=== PATIENT | female | born 1990 | race Caucasian/White ===

== ENCOUNTER 2022-09-21 14:11 | Observation (INO) ==
--- NOTE | 2022-09-21 14:21 | Emergency Department Note ---
Impression & Plan Acute cholecystitis, Biliary colic, Abdominal pain, RUQ ED Provider Note NAME: SANDY MOTT AGE: 31 SEX: F : 1990 ARRIVES VIA: Walk-In INFORMANT: Patient, ED PROVIDER(S): Julian Coe MD CHIEF COMPLAINT: Abdominal pain MEDICAL DECISION MAKING: Patient presents due to concern for abdominal pain that began about 45 minutes to an hour prior to arrival. IV was established blood obtained and right upper quadrant ultrasound was also obtained given the patient's epigastric and right upper quadrant discomfort darien cially in light of recent postprandial symptoms. Patient blood shows a normal white count H&H and platelet count. Kidney function is unremarkable. Mild hyponatremia. Bilirubin 1.1 with an AST of 60. Other LFTs and lipase are normal. Urinalysis shows the possibility of infection with the patient complains of upper abdominal pain does have numerous epithelial cells. Likely contaminated specimen. COVID-negative. Patient did have recurrence of abdominal pain symptoms. The patient was ordered IV morphine and IV Pepcid. 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 There is wall thickening. Given this concern and her initial examination with postprandial symptoms I did speak the on-call general surgeon Dr. Lewis who did evaluate the patient. Dr. Lewis requested Zosyn which was ordered IV. Patient was admitted by the surgical service. Patient was was likely going to the OR tomorrow given the patient had recently needed eaten around 1 PM. Prior /Outside records reviewed: None Differential diagnosis: Biliary colic, cholecystitis, appendicitis, ovarian cyst, ovarian torsion, ectopic , TOA, PID, infections, diverticulitis, UTI, obstruction, mesenteric ischemia, aortic pathology, inflammatory bowel disease, renal colic, PUD, pancreatitis, biliary pathology, hernia, volvulus, constipation, as well as other pathologies. Diagnostics, as interpreted by me: ECG: None Cardiac monitoring: An order was placed for continuous cardiac monitoring. The monitor shows a rate of 87 with sinus rhythm. Patient was placed on pulse oximetry Medical decision rules: None Imaging studies: See below HPI: Patient presents due to concern for abdominal pain. Patient states it is in the upper abdomen epigastric and right upper quadrant some ongoing after eating approxi-1 hour prior to arrival. Patient denies any chest pains or shortness of breath. The patient is a nausea but no vomiting. LMP was about 5 weeks ago is on control this is typical for her. No vaginal bleeding or discharge patient denies any blood in urine or stool and no dysuria. No history of kidney stones. Patient has never had any prior abdominal surgery. Patient does not experience count of pain before. The patient did not take anything for prior to arrival. PAST MEDICAL HISTORY: See Below PAST SURGICAL HISTORY: See Below SOCIAL HISTORY: See Below HOME MEDICATIONS: See Below ALLERGIES: See Below VITALS: See Below PHYSICAL EXAMINATION: GENERAL: Alert and comfortable in appearance, nontoxic EYE EXAM: Normal conjunctiva. PERRL, no anisocoria and EOM's grossly intact w/o pain. NECK: Supple, no nuchal rigidity, no adenopathy, non-tender. No signs of meningismus. FROM of the neck with good chin to chest and neck extension. No stridor. LUNGS: Clear to auscultation. Normal chest wall mechanics. HEART: NSR, no MRG. ABDOMEN: Abdomen soft, right upper quadrant pain and epigastric pain without lower abdominal pain, not peritonitic, no masses, no rebound or guarding. BACK: No CVA TTP. SKIN: No rashes and no bruising. UPPER EXTREMITIES: Upper extremities are grossly normal. LOWER EXTREMITIES: Grossly normal, no edema. NEURO EXAM: A&O x3, cranial nerves II-XII grossly intact, normal speech, moves all 4 extremities. Past Med/Surg History Medical History No pertinent past medical history Surgical History No pertinent past surgical history Social History Smoking Status: Never smoker Hx Alcohol Use: Yes Hx Substance Use: No Preferred Language: [place]ese Feels Safe at Home: Yes Allergies Allergies Allergy/AdvReac Type Severity Reaction Status Date / Time No Known Allergies Allergy Verified 09/21/22 16:31 Home Meds Home Medications Medication Instructions Recorded Confirmed etonogestrel 0.12 mg-ethinyl 1 vag ring vaginal DIRECTED 09/21/22 09/21/22 estradiol 0.015 mg/24 hr vaginal ring (EluRyng) levothyroxine 100 mcg tablet 100 mcg PO DAILYBB 09/21/22 09/21/22 (Synthroid) liothyronine 5 mcg tablet 5 mcg PO QAM 09/21/22 09/21/22 sertraline 100 mg tablet 150 mg PO QAM 09/21/22 09/21/22 Results & Data (ED) Vital Signs Vital Signs - 24 hr 09/21/22 14:13 09/21/22 15:03 09/21/22 15:03 Temperature 36.6 C Temperature Source Temporal Artery Scan Pulse Rate 104 H 88 Pulse Rate [Apical] Respiratory Rate 18 Blood Pressure 121/80 Blood Pressure [Right Arm] Blood Pressure Mean 93 Blood Pressure Mean [Right Arm] Blood Pressure Position Sitting Pulse Oximetry 100 98 Oxygen Delivery Method Room Air Room Air Room Air Sepsis Recent Fever Within 48 Hours No Sepsis New/Unexplained Change in Mental Status N/A Sepsis Action Taken by Nursing No Action Required 09/21/22 15:03 09/21/22 15:46 09/21/22 16:01 Temperature Temperature Source Pulse Rate 89 Pulse Rate [Apical] 88 90 Respiratory Rate 19 19 Blood Pressure Blood Pressure [Right Arm] 126/62 127/95 Blood Pressure Mean Blood Pressure Mean [Right Arm] 83 105 Blood Pressure Position Pulse Oximetry 99 99 Oxygen Delivery Method Room Air Room Air Sepsis Recent Fever Within 48 Hours Sepsis New/Unexplained Change in Mental Status Sepsis Action Taken by [facility] Medications Current Medication List: was personally reviewed by me Laboratory Data Attestation: I reviewed the patient's lab results. 09/21/22 14:58 09/21/22 14:58 Lab Results 09/21/22 09/21/22 09/21/22 Range/Units 14:58 14:58 14:58 WBC 9.57 (4.8-10.8) K/ul RBC 5.03 (4.20-5.40) M/uL Hgb 15.0 (12.0-16.0) g/dl Hct 43.0 (37.0-47.0) % MCV 85.5 (80.0-100.0) fL MCH 29.8 (25.0-34.0) pg MCHC 34.9 (32.0-36.0) g/dL RDW Std Deviation 35.6 L (36.4-46.3) fL RDW Coeff of Prisca 11.7 (11.5-14.5) % Plt Count 255 (130-400) K/uL MPV 9.6 (9.4-12.4) fL Immature Gran % (Auto) 0.4 % Neut % (Auto) 74.1 % Lymph % (Auto) 20.5 % Fisher % (Auto) 3.6 % Eos % (Auto) 0.8 % Baso % (Auto) 0.6 % Neut # (Auto) 7.09 H (1.40-6.50) K/uL Lymph # (Auto) 1.96 (1.2-3.4) K/uL Fisher # (Auto) 0.34 (0.11-0.59) K/uL Eos # (Auto) 0.08 (0-0.50) K/uL Baso # (Auto) 0.06 (0-0.2) K/uL Immature Gran # (Auto) 0.04 (0.01-0.20) K/uL Sodium 139 (136-145) mmol/L Potassium 3.2 L (3.5-5.1) mmol/L Chloride 106 (98-107) mmol/L Carbon Dioxide 23 (21-32) mmol/L Anion Gap 10 (3-11) BUN 10 (6-23) mg/dl Creatinine 0.78 (0.6-1.2) mg/dl Est Cr Clr Drug Dosing Not Reportable Est GFR ( Amer) 117.4 ml/min Est GFR (Non-Af Amer) 101.3 ml/min BUN/Creatinine Ratio 12.8 (10-20) Glucose 107 H (70-99(Fasting)) mg/dl Calcium 9.4 (8.6-10.3) mg/dl Total Bilirubin 1.1 H (0.2-1.0) mg/dl AST 60 H (13-39) U/L ALT 27 (7-52) U/L Alkaline Phosphatase 50 (34-104) U/L Total Protein 7.5 (6.0-8.3) gm/dl Albumin 4.2 (3.4-5.0) gm/dl Globulin 3.3 (2.5-4.0) gm/dl Albumin/Globulin Ratio 1.3 (0.9-2) Lipase 17 (11-82) U/L Urine Color Yellow Urine Appearance Cloudy A (Clear) Urine pH 6.5 (4.5-7.5) Ur Specific [place] 1.021 (1.000-1.030) Urine Protein Negative (Negative) Urine Glucose (UA) Negative (Negative) Urine Ketones Negative (Negative) Urine Blood Negative (Negative) Urine Nitrite Negative (Negative) Urine Bilirubin Negative (Negative) Urine Urobilinogen Negative (Negative) Ur Leukocyte Esterase 2+ H (Negative) Urine WBC (Auto) >30 H (0-5) /hpf Urine RBC (Auto) 0-4 (0-4) /hpf U Hyaline Cast (Auto) 1-5 (0-5) /lpf U Epithel Cells (Auto) >30 H (0-5) /lpf Urine Bacteria (Auto) 2+ H (Negative) SARS-CoV-2, RNA, NAAT (NEGATIVE) 09/21/22 Range/Units 15:00 WBC (4.8-10.8) K/ul RBC (4.20-5.40) M/uL Hgb (12.0-16.0) g/dl Hct (37.0-47.0) % MCV (80.0-100.0) fL MCH (25.0-34.0) pg MCHC (32.0-36.0) g/dL RDW Std Deviation (36.4-46.3) fL RDW Coeff of Prisca (11.5-14.5) % Plt Count (130-400) K/uL MPV (9.4-12.4) fL Immature Gran % (Auto) % Neut % (Auto) % Lymph % (Auto) % Fisher % (Auto) % Eos % (Auto) % Baso % (Auto) % Neut # (Auto) (1.40-6.50) K/uL Lymph # (Auto) (1.2-3.4) K/uL Fisher # (Auto) (0.11-0.59) K/uL Eos # (Auto) (0-0.50) K/uL Baso # (Auto) (0-0.2) K/uL Immature Gran # (Auto) (0.01-0.20) K/uL Sodium (136-145) mmol/L Potassium (3.5-5.1) mmol/L Chloride (98-107) mmol/L Carbon Dioxide (21-32) mmol/L Anion Gap (3-11) BUN (6-23) mg/dl Creatinine (0.6-1.2) mg/dl Est Cr Clr Drug Dosing Est GFR ( Amer) ml/min Est GFR (Non-Af Amer) ml/min BUN/Creatinine Ratio (10-20) Glucose (70-99(Fasting)) mg/dl Calcium (8.6-10.3) mg/dl Total Bilirubin (0.2-1.0) mg/dl AST (13-39) U/L ALT (7-52) U/L Alkaline Phosphatase (34-104) U/L Total Protein (6.0-8.3) gm/dl Albumin (3.4-5.0) gm/dl Globulin (2.5-4.0) gm/dl Albumin/Globulin Ratio (0.9-2) Lipase (11-82) U/L Urine Color Urine Appearance (Clear) Urine pH (4.5-7.5) Ur Specific [place] (1.000-1.030) Urine Protein (Negative) Urine Glucose (UA) (Negative) Urine Ketones (Negative) Urine Blood (Negative) Urine Nitrite (Negative) Urine Bilirubin (Negative) Urine Urobilinogen (Negative) Ur Leukocyte Esterase (Negative) Urine WBC (Auto) (0-5) /hpf Urine RBC (Auto) (0-4) /hpf U Hyaline Cast (Auto) (0-5) /lpf U Epithel Cells (Auto) (0-5) /lpf Urine Bacteria (Auto) (Negative) SARS-CoV-2, RNA, NAAT NEGATIVE (NEGATIVE) Administered Medications Enoxaparin Sodium (Enoxaparin Inj 40 Mg/0.4 Ml Syr) 40 mg SQ Q24H LUAN Stop: 10/21/22 18:15 Last Admin: 09/21/22 20:20 Dose: 40 mg Documented By: MARK Lactated Ringer's (Lr) 1,000 mls @ 100 mls/hr IV .Q10H LUAN Stop: 10/21/22 18:15 Last Infusion: 09/22/22 08:08 Dose: 0 mls/hr Documented By: Admin: 09/21/22 18:27 Dose: 100 mls/hr Documented By: LEAH Piperacillin Sod/Tazobactam (Sod 4.5 gm/ Dextrose) 120 mls @ 30 mls/hr IV Q8H LUAN; Protocol Stop: 10/02/22 00:00 Last Admin: 09/22/22 08:08 Dose: 30 mls/hr Documented By: Infusion: 09/22/22 03:58 Dose: 0 mls/hr Documented By: Admin: 09/21/22 23:57 Dose: 30 mls/hr Documented By: MARK Discontinued Medications Sodium Chloride (Nss) 500 mls @ 999 mls/hr IV .Q31M STA Stop: 09/21/22 14:59 Last Infusion: 09/21/22 15:37 Dose: 0 mls/hr Documented By: Admin: 09/21/22 14:55 Dose: 999 mls/hr Documented By: Famotidine (Pepcid 20mg Iv Push) 20 mg in 5 mls @ 2.5 mls/min IV NOW STA Stop: 09/21/22 15:51 Last Admin: 09/21/22 15:55 Dose: 2.5 mls/min Documented By: Piperacillin Sod/Tazobactam (Sod 4.5 gm/ Dextrose) 120 mls @ 200 mls/hr IV NOW ONE; Protocol Stop: 09/21/22 17:23 Last Infusion: 09/21/22 17:53 Dose: 0 mls/hr Documented By: Admin: 09/21/22 17:14 Dose: 200 mls/hr Documented By: Ketorolac Tromethamine (Ketorolac Tromethamine 15 Mg/Ml Vial) 10 mg IV NOW STA Stop: 09/21/22 14:30 Last Admin: 09/21/22 14:54 Dose: 10 mg Documented By: Morphine Sulfate (Morphine Sulfate 10 Mg/Ml Carp/Vial) 8 mg IV NOW STA Stop: 09/21/22 15:51 Last Admin: 09/21/22 15:56 Dose: 8 mg Documented By: Ondansetron HCl (Ondansetron Inj 2 Mg/Ml 2 Ml Vial) 4 mg IV NOW STA Stop: 09/21/22 14:30 Last Admin: 09/21/22 14:55 Dose: 4 mg Documented By: Imaging Data Radiologist's Impression: Gallbladder Ultrasound 09/21/22 14:29 US gallbladder CLINICAL HISTORY: epiastric RUQ pain after eating TECHNIQUE: Multiple real-time sonographic images of the right upper quadrant were obtained. Comparison: None available at the time of this dictation. FINDINGS: The liver is diffusely homogenous with normal contour and echogenicity. No focal mass lesions are seen. No intrahepatic ductal dilatation is seen. 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 Patient is tender over the gallbladder but evaluation is limited by pain medication. The common duct measures 0.4 cm in diameter at the level of the hepatic artery. The visualized portions of the pancreas appear normal. The right kidney shows normal echogenicity, cortical thickness and renal contour. The right kidney shows no evidence of hydronephrosis or mass. No ascites or free fluid is seen in Roberto's pouch. IMPRESSION: Overall indeterminate exam with limited evaluation due to pain medication and porcelain gallbladder. Wall thickening and patient tenderness is suggestive of acute cholecystitis. If further evaluation is desired, nuclear medicine HIDA scan can be performed. ACT 112: Negative or not required by law. Electronically signed by: Angel Falcon M.D. 09/21/2022 3:49 PM Discharge Plan Visit Data Chief Complaint: Abdominal Pain Stated Complaint: ABDOMINAL PAIN ED Provider: Julian Coe Discharge Problem: Acute cholecystitis, Biliary colic, Abdominal pain, RUQ Patient Disposition: Admitted As Inpatient Discharge Instructions Interventions: ED Discharge Assessment Last Done: 09/21/22 17:59
[2022-09-21] MEDS ORDERED: ONDANSETRON INJ 2 MG/ML 2 ML VIAL IV STA (14:29)
[2022-09-21] MEDS ORDERED: SODIUM CHLORIDE 0.9% 500 ML IV STA (14:29)
[2022-09-21] MEDS ORDERED: KETOROLAC TROMETHAMINE 15 MG/ML VIAL IV STA (14:29)
[2022-09-21 15:11] LABS: Basophils # (auto) 0.06 K/uL (0-0.2); Basophils % (auto) 0.6 %; Eosinophils # (auto) 0.08 K/uL (0-0.50); Eosinophils % (auto) 0.8 %; Immature Granulocytes # (auto) 0.04 K/uL (0.01-0.20); Immature Granulocytes % (auto) 0.4 %; Lymphocytes # (auto) 1.96 K/uL (1.2-3.4); Lymphocytes % (auto) 20.5 %; Mean Corpuscular Hemoglobin 29.8 pg (25.0-34.0); Mean Corpuscular Hgb Conc 34.9 g/dL (32.0-36.0); Mean Corpuscular Volume 85.5 fL (80.0-100.0); Mean Platelet Volume 9.6 fL (9.4-12.4); Monocytes # (auto) 0.34 K/uL (0.11-0.59); Monocytes % (auto) 3.6 %; Neutrophils # (auto) 7.09 K/uL (1.40-6.50); Neutrophils % (auto) 74.1 %; Platelet Count 255 K/uL (130-400); RDW Coefficient of Variation 11.7 % (11.5-14.5); RDW Standard Deviation 35.6 fL (36.4-46.3); Red Blood Count 5.03 M/uL (4.20-5.40); White Blood Count 9.57 K/ul (4.8-10.8)
[2022-09-21 15:22] LABS: Appearance Urine Cloudy (Clear); Bacteria Urine Automated 2+ (Negative); Bilirubin Urine Negative (Negative); Blood Urine Negative (Negative); Color Urine Yellow; Epithelial Cell Urine Auto >30 /lpf (0-5); Glucose Urine UA Negative (Negative); Ketones Urine Negative (Negative); Leukocyte Esterase Urine 2+ (Negative); Nitrite Urine Negative (Negative); Protein Urine Negative (Negative); RBC Urine Automated 0-4 /hpf (0-4); Specific Gravity Urine 1.021 (1.000-1.030); Urobilinogen Urine Negative (Negative); WBC Urine Automated >30 /hpf (0-5); pH Urine 6.5 (4.5-7.5)
[2022-09-21 15:34] LABS: Albumin Level 4.2 gm/dl (3.4-5.0); Anion Gap 10 (3-11); Bilirubin,Total 1.1 mg/dl (0.2-1.0); Calcium 9.4 mg/dl (8.6-10.3); Carbon Dioxide 23 mmol/L (21-32); Chloride 106 mmol/L (98-107); Potassium 3.2 mmol/L (3.5-5.1); Sodium 139 mmol/L (136-145)
[2022-09-21 15:40] LABS: Alanine Aminotransferase 27 U/L (7-52); Albumin Globulin Ratio 1.3 (0.9-2); Alkaline Phosphatase 50 U/L (34-104); Aspartate Aminotransferase 60 U/L (13-39); BUN Creatinine Ratio 12.8 (10-20); Blood Urea Nitrogen 10 mg/dl (6-23); Est GFR (African American) 117.4 ml/min; Est GFR (Non-African American) 101.3 ml/min; Globulin 3.3 gm/dl (2.5-4.0); Glucose 107 mg/dl (70-99(Fasting)); Lipase 17 U/L (11-82); Total Protein 7.5 gm/dl (6.0-8.3)
[2022-09-21] MEDS ORDERED: FAMOTIDINE 20MG IV PUSH 20 MG/5 ML SYR IV STA (15:50)
[2022-09-21] MEDS ORDERED: MoRPHine SULFATE 10 MG/ML CARP/VIAL IV STA (15:50)
--- NOTE | 2022-09-21 15:52 | Ultrasound Report ---
US gallbladder CLINICAL HISTORY: epiastric RUQ pain after eating TECHNIQUE: Multiple real-time sonographic images of the right upper quadrant were obtained. Comparison: None available at the time of this dictation. FINDINGS: The liver is diffusely homogenous with normal contour and echogenicity. No focal mass lesions are see n. No intrahepatic ductal dilatation is seen. 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 Patient is tender over the gallbladder but evaluation is l imited by pain medication. The common duct measures 0.4 cm in diameter at the level of the hepatic ar merced. The visualized portions of the pancreas appear normal. The right kidney shows normal echogenicity, cortical thickness and renal contour. The right kidney sh ows no evidence of hydronephrosis or mass. No ascites or free fluid is seen in Roberto's pouch. IMPRESSION: Overall indeterminate exam with limited evaluation due to pain medication and porcelain gallbladder. Wall thickening and patient tenderness is suggestive of acute cholecystitis. If further evaluation is desired, nuclear medicine HIDA scan can be performed. ACT 112: Negative or not required by law. Electronically signed by: Angel Falcon M.D. 09/21/2022 3:49 PM
[2022-09-21] MEDS ORDERED: PIPERACILLIN/TAZOBACTAM 4.5 GM in DEXTROSE 5% 100 ML IV ONE (16:48)
--- NOTE | 2022-09-21 17:31 | History & Physical Report ---
Date of Service September 21, 2022 Assessment & Plan (1) Acute cholecystitis: (2) Biliary colic: Plan 31-year-old woman with early acute cholecystitis. She did eat at 1:00 today. We will admit her to the hospital and place her on IV antibiotics. We will keep her n.p.o. overnight. We will take her to the operating room tomorrow for laparoscopic cholecystectomy. Pain control as needed. I discussed the plan with her and she is agreeable to proceed. All questions were answered. History of Present Illness Primary Care Provider: NO PCP 31-year-old woman presents to the emergency department with severe stabbing right upper quadrant epigastric pain beginning at 1:30 PM today. This started after she ate scrambled eggs at 1:00. She states that she has had epigastric pain, back pain, and heartburn over the past week and increasing episodes. She denies fevers but did have chills when the episode began today. She denies trouble moving her bowels. She denies abdominal surgery in the past. She denies any other complaints. Allergies Allergy/AdvReac Type Severity Reaction Status Date / Time No Known Allergies Allergy Verified 09/21/22 16:31 Home Medications Medication Instructions Recorded Confirmed Type etonogestrel 0.12 mg-ethinyl 1 vag ring vaginal DIRECTED 09/21/22 09/21/22 History estradiol 0.015 mg/24 hr vaginal ring (EluRyng) levothyroxine 100 mcg tablet 100 mcg PO DAILYBB 09/21/22 09/21/22 History (Synthroid) liothyronine 5 mcg tablet 5 mcg PO QAM 09/21/22 09/21/22 History sertraline 100 mg tablet 150 mg PO QAM 09/21/22 09/21/22 History Past Med/Surg History Medical History No pertinent past medical history Surgical History No pertinent past surgical history Social History Smoking Status: Never smoker Hx Alcohol Use: Yes Hx Substance Use: No Preferred Language: [place] Feels Safe at Home: Yes Review of Systems Review of Systems: All systems reviewed & are unremarkable except as noted in HPI & below Physical Exam Constitutional: WD/WN, vitals as above Eyes: PERRL, conjunctivae normal, anicteric sclerae Neck: trachea midline, no thyromegaly Respiratory: normal respiratory effort; no respiratory distress and no labored breathing Cardiovascular: Rate/Rhythm: regular rate and regular rhythm Gastrointestinal (Abdomen): Inspection/Auscultation: abdomen normal to inspection; abdomen not distended Percussion/Palpation: + abdomen tender (RUQ, epigastrium) and abdomen soft; no guarding and abdomen not rigid Skin: no rashes, warm and dry Psychiatric: A+Ox3, euthymic affect Results & Data Results & Data Vital Signs (Past 12 Hours) Vital Signs Temp Pulse Pulse Resp BP BP Pulse Ox 09/21/22 16:01 89 09/21/22 15:46 90 19 127/95 99 09/21/22 15:03 88 19 126/62 99 09/21/22 15:03 09/21/22 15:03 88 98 09/21/22 14:13 36.6 C 104 H 18 121/80 100 O2 Del Method 09/21/22 16:01 09/21/22 15:46 Room Air 09/21/22 15:03 Room Air 09/21/22 15:03 Room Air 09/21/22 15:03 Room Air 09/21/22 14:13 Room Air Laboratory Results 09/21/22 09/21/22 09/21/22 Range/Units 15:00 14:58 14:58 WBC (4.8-10.8) K/ul RBC (4.20-5.40) M/uL Hgb (12.0-16.0) g/dl Hct (37.0-47.0) % MCV (80.0-100.0) fL MCH (25.0-34.0) pg MCHC (32.0-36.0) g/dL RDW Std Deviation (36.4-46.3) fL RDW Coeff of Prisca (11.5-14.5) % Plt Count (130-400) K/uL MPV (9.4-12.4) fL Immature Gran % (Auto) % Neut % (Auto) % Lymph % (Auto) % [place] % (Auto) % Eos % (Auto) % Baso % (Auto) % Neut # (Auto) (1.40-6.50) K/uL Lymph # (Auto) (1.2-3.4) K/uL [place] # (Auto) (0.11-0.59) K/uL Eos # (Auto) (0-0.50) K/uL Baso # (Auto) (0-0.2) K/uL Immature Gran # (Auto) (0.01-0.20) K/uL Sodium 139 (136-145) mmol/L Potassium 3.2 L (3.5-5.1) mmol/L Chloride 106 (98-107) mmol/L Carbon Dioxide 23 (21-32) mmol/L Anion Gap 10 (3-11) BUN 10 (6-23) mg/dl Creatinine 0.78 (0.6-1.2) mg/dl Est Cr Clr Drug Dosing Not Reportable Est GFR ( Amer) 117.4 ml/min Est GFR (Non-Af Amer) 101.3 ml/min BUN/Creatinine Ratio 12.8 (10-20) Glucose 107 H (70-99(Fasting)) mg/dl Calcium 9.4 (8.6-10.3) mg/dl Total Bilirubin 1.1 H (0.2-1.0) mg/dl AST 60 H (13-39) U/L ALT 27 (7-52) U/L Alkaline Phosphatase 50 (34-104) U/L Total Protein 7.5 (6.0-8.3) gm/dl Albumin 4.2 (3.4-5.0) gm/dl Globulin 3.3 (2.5-4.0) gm/dl Albumin/Globulin Ratio 1.3 (0.9-2) Lipase 17 (11-82) U/L Urine Color Yellow Urine Appearance Cloudy A (Clear) Urine pH 6.5 (4.5-7.5) Ur Specific [place] 1.021 (1.000-1.030) Urine Protein Negative (Negative) Urine Glucose (UA) Negative (Negative) Urine Ketones Negative (Negative) Urine Blood Negative (Negative) Urine Nitrite Negative (Negative) Urine Bilirubin Negative (Negative) Urine Urobilinogen Negative (Negative) Ur Leukocyte Esterase 2+ H (Negative) Urine WBC (Auto) >30 H (0-5) /hpf Urine RBC (Auto) 0-4 (0-4) /hpf U Hyaline Cast (Auto) 1-5 (0-5) /lpf U Epithel Cells (Auto) >30 H (0-5) /lpf Urine Bacteria (Auto) 2+ H (Negative) SARS-CoV-2, RNA, NAAT NEGATIVE (NEGATIVE) 09/21/22 Range/Units 14:58 WBC 9.57 (4.8-10.8) K/ul RBC 5.03 (4.20-5.40) M/uL Hgb 15.0 (12.0-16.0) g/dl Hct 43.0 (37.0-47.0) % MCV 85.5 (80.0-100.0) fL MCH 29.8 (25.0-34.0) pg MCHC 34.9 (32.0-36.0) g/dL RDW Std Deviation 35.6 L (36.4-46.3) fL RDW Coeff of Prisca 11.7 (11.5-14.5) % Plt Count 255 (130-400) K/uL MPV 9.6 (9.4-12.4) fL Immature Gran % (Auto) 0.4 % Neut % (Auto) 74.1 % Lymph % (Auto) 20.5 % [place] % (Auto) 3.6 % Eos % (Auto) 0.8 % Baso % (Auto) 0.6 % Neut # (Auto) 7.09 H (1.40-6.50) K/uL Lymph # (Auto) 1.96 (1.2-3.4) K/uL [place] # (Auto) 0.34 (0.11-0.59) K/uL Eos # (Auto) 0.08 (0-0.50) K/uL Baso # (Auto) 0.06 (0-0.2) K/uL Immature Gran # (Auto) 0.04 (0.01-0.20) K/uL Sodium (136-145) mmol/L Potassium (3.5-5.1) mmol/L Chloride (98-107) mmol/L Carbon Dioxide (21-32) mmol/L Anion Gap (3-11) BUN (6-23) mg/dl Creatinine (0.6-1.2) mg/dl Est Cr Clr Drug Dosing Est GFR ( Amer) ml/min Est GFR (Non-Af Amer) ml/min BUN/Creatinine Ratio (10-20) Glucose (70-99(Fasting)) mg/dl Calcium (8.6-10.3) mg/dl Total Bilirubin (0.2-1.0) mg/dl AST (13-39) U/L ALT (7-52) U/L Alkaline Phosphatase (34-104) U/L Total Protein (6.0-8.3) gm/dl Albumin (3.4-5.0) gm/dl Globulin (2.5-4.0) gm/dl Albumin/Globulin Ratio (0.9-2) Lipase (11-82) U/L Urine Color Urine Appearance (Clear) Urine pH (4.5-7.5) Ur Specific [place] (1.000-1.030) Urine Protein (Negative) Urine Glucose (UA) (Negative) Urine Ketones (Negative) Urine Blood (Negative) Urine Nitrite (Negative) Urine Bilirubin (Negative) Urine Urobilinogen (Negative) Ur Leukocyte Esterase (Negative) Urine WBC (Auto) (0-5) /hpf Urine RBC (Auto) (0-4) /hpf U Hyaline Cast (Auto) (0-5) /lpf U Epithel Cells (Auto) (0-5) /lpf Urine Bacteria (Auto) (Negative) SARS-CoV-2, RNA, NAAT (NEGATIVE) Diagnostic Findings US gallbladder CLINICAL HISTORY: epiastric RUQ pain after eating TECHNIQUE: Multiple real-time sonographic images of the right upper quadrant were obtained. Comparison: None available at the time of this dictation. FINDINGS: The liver is diffusely homogenous with normal contour and echogenicity. No focal mass lesions are seen. No intrahepatic ductal dilatation is seen. 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 Patient is tender over the gallbladder but evaluation is limited by pain medication. The common duct measures 0.4 cm in diameter at the level of the hepatic artery. The visualized portions of the pancreas appear normal. The right kidney shows normal echogenicity, cortical thickness and renal contour. The right kidney shows no evidence of hydronephrosis or mass. No ascites or free fluid is seen in Roberto's pouch. IMPRESSION: Overall indeterminate exam with limited evaluation due to pain medication and porcelain gallbladder. Wall thickening and patient tenderness is suggestive of acute cholecystitis. If further evaluation is desired, nuclear medicine HIDA scan can be performed.
[2022-09-21] MEDS ORDERED: diphenhydrAMINE Capsule 25 MG CAP PO PRN (18:16)
[2022-09-21] MEDS ORDERED: KETOROLAC 30 MG/ML VIAL IV PRN (18:16)
[2022-09-21] MEDS ORDERED: PROMETHAZINE HCL 12.5 MG in SODIUM CHLORIDE 0.9% 50 ML IV PRN (18:16)
[2022-09-21] MEDS ORDERED: MoRPHine SULFATE 2 MG/ML CARP IV PRN (18:16)
[2022-09-21] MEDS ORDERED: ONDANSETRON INJ 2 MG/ML 2 ML VIAL IV PRN (18:16)
[2022-09-21] MEDS: LACTATED RINGER'S 1,000 ML IV SCH (18:27)
[2022-09-21] MEDS: ENOXAPARIN INJ 40 MG/0.4 ML SYR SQ SCH (20:20)
[2022-09-21] MEDS: PIPERACILLIN/TAZOBACTAM 4.5 GM in DEXTROSE 5% 100 ML IV SCH (23:57)
[2022-09-22] MEDS: PIPERACILLIN/TAZOBACTAM 4.5 GM in DEXTROSE 5% 100 ML IV SCH ×2 (08:08→15:33)
--- NOTE | 2022-09-22 08:37 | Anesthesiology Consultation ---
Date of Service September 22, 2022 Assessment & Plan Chart Review Chart Review: Acceptable Risk for Surgery and Patient NOT seen in Pre Admission Testing Consults Requested none Proposed Anesthesia Anesthesia Type: General History Surgery Operation Date: 09/22/22 06:50 Proposed Procedures p Laparoscopic Cholecystectomy - Carlton Lewis MD Height/Weight Weight: 125.4 kg Allergies Allergy/AdvReac Type Severity Reaction Status Date / Time No Known Allergies Allergy Verified 09/21/22 16:31 Medications Home Medications Medication Instructions Recorded Confirmed Last Taken etonogestrel 0.12 mg-ethinyl 1 vag ring vaginal DIRECTED 09/21/22 09/21/22 Unknown estradiol 0.015 mg/24 hr vaginal ring (EluRyng) levothyroxine 100 mcg tablet 100 mcg PO DAILYBB 09/21/22 09/21/22 09/21/22 (Synthroid) liothyronine 5 mcg tablet 5 mcg PO QAM 09/21/22 09/21/22 09/21/22 sertraline 100 mg tablet 150 mg PO QAM 09/21/22 09/21/22 09/21/22 Active Medications Generic Name Dose Route Start Last Admin Trade Name Freq PRN Reason Stop Dose Admin Enoxaparin Sodium 40 mg 09/21/22 18:16 09/21/22 20:20 Enoxaparin Inj 40 Mg/0.4 Ml Syr SQ 10/21/22 18:15 40 mg Q24H LUAN Administration Lactated Ringer's 1,000 mls @ 100 mls/hr 09/21/22 18:16 09/22/22 08:08 Lr IV 10/21/22 18:15 Infused .Q10H LUAN Infusion Piperacillin Sod/Tazobactam 120 mls @ 30 mls/hr 09/22/22 00:00 09/22/22 08:08 Sod 4.5 gm/ Dextrose IV 10/02/22 00:00 30 mls/hr Q8H LUAN Administration Protocol Past Medical History Medical History No pertinent past medical history obese;hypothyroid Exercise / Class Metabolic Activity II 4-5 Yardwork/Stairs/Walk up hill Past Surgical History Surgical History No pertinent past surgical history Past Anesthesia History No Hx of Anesthesia Complications and No Family Hx of Anesthesia Complications History of PONV No Hx of PONV and No Hx of Motion Sickness Social History Smoking Status: Never smoker Hx Alcohol Use: Yes Hx Substance Use: No Physical Exam Vital Signs Last Vital Signs Temp 36.7 C 09/22/22 07:09 Pulse 79 09/22/22 07:09 Resp 16 09/22/22 07:09 BP 122/77 09/22/22 07:09 Pulse Ox 98 09/22/22 07:09 O2 Del Method Room Air 09/22/22 07:09 Testing Laboratory Results 09/21/22 14:58 09/21/22 14:58 Urine Color Yellow 09/21/22 14:58 Urine Appearance Cloudy (Clear) A 09/21/22 14:58 Urine pH 6.5 (4.5-7.5) 09/21/22 14:58 Ur Specific [place] 1.021 (1.000-1.030) 09/21/22 14:58 Urine Protein Negative (Negative) 09/21/22 14:58 Urine Glucose (UA) Negative (Negative) 09/21/22 14:58 Urine Ketones Negative (Negative) 09/21/22 14:58 Urine Nitrite Negative (Negative) 09/21/22 14:58 Ur Leukocyte Esterase 2+ (Negative) H 09/21/22 14:58 Urine WBC (Auto) >30 /hpf (0-5) H 09/21/22 14:58 Urine RBC (Auto) 0-4 /hpf (0-4) 09/21/22 14:58 U Hyaline Cast (Auto) 1-5 /lpf (0-5) 09/21/22 14:58 U Epithel Cells (Auto) >30 /lpf (0-5) H 09/21/22 14:58 Urine Bacteria (Auto) 2+ (Negative) H 09/21/22 14:58
[2022-09-22] MEDS ORDERED: fentaNYL citrate PF 100 MCG/2 ML VIAL ONE ×2 (08:47→10:35)
[2022-09-22] MEDS ORDERED: MIDAZOLAM HCL 1 MG/ML 2ML VIAL ONE (08:47)
[2022-09-22] MEDS ORDERED: LIDOCAINE 2% 2 ML VIAL/AMP(20MG/ML) INFIL ONE ×2 (08:48)
[2022-09-22] MEDS ORDERED: ROCURONIUM BROMIDE 10 MG/ML 5 ML VIAL IV ONE (08:48)
[2022-09-22] MEDS ORDERED: PROPOFOL IV EMULSION 10 MG/ML 20 ML VIAL IV ONE (08:48)
[2022-09-22] MEDS ORDERED: BUPIVACAINE/EPINEPHRINE 0.25% 1:200,000 30 ML VIAL ONE (09:12)
--- NOTE | 2022-09-22 09:44 | Surgery Progress Note ---
Date of Service September 22, 2022 Assessment & Plan (1) Acute cholecystitis: (2) Biliary colic: Plan 31-year-old with acute cholecystitis. Discussed risks and benefits of laparoscopic cholecystectomy. All questions were answered, and consent has been obtained. We will take her to the operating room for laparoscopic cholecystectomy this morning. Admission and Anticipated Discharge Date Admission Date: September 21, 2022 Subjective Doing well this morning. Minimal pain. Does have significant heartburn. Denies nausea or vomiting. Denies chills or sweats. Physical Exam Physical Exam: AFVSS NAD A&Ox3 RRR CTAB Abd soft, minimal RUQ tenderness; ND Results & Data Vital Signs (Past 12 Hours) Vital Signs Temp Pulse Resp BP Pulse Ox O2 Del Method 09/22/22 07:09 36.7 C 79 16 122/77 98 Room Air 09/22/22 02:00 36.7 C 74 16 128/74 98 Room Air 09/21/22 22:54 37.1 C 71 16 126/76 96 Room Air
--- NOTE | 2022-09-22 09:44 | History & Physical Bridge Note ---
Date of Service September 22, 2022 History & Physical Bridge Note I have examined the patient, reviewed the History & Physical and in the interval since the performance of the History & Physical I have noted the following changes of clinical significance: no changes noted
[2022-09-22] MEDS ORDERED: NALOXONE HCL 0.4 MG/1 ML VIAL/CARP IV PRN (09:53)
[2022-09-22] MEDS ORDERED: FLUMAZENIL 0.1 MG/1 ML 10 ML VIAL IV PRN (09:53)
[2022-09-22] MEDS ORDERED: ePHEDrine sulfate 50 MG/ML AMP IV PRN (09:53)
[2022-09-22] MEDS ORDERED: ONDANSETRON INJ 2 MG/ML 2 ML VIAL IV PRN (09:53)
[2022-09-22] MEDS ORDERED: ATROPINE SULFATE 0.1 MG/ML 10ML SYR IV PRN (09:53)
[2022-09-22] MEDS ORDERED: PROMETHAZINE HCL 12.5 MG in SODIUM CHLORIDE 0.9% 50 ML IV PRN (09:53)
[2022-09-22 10:00] LABS: Pregnancy Test, Urine Negative (Negative)
[2022-09-22] MEDS ORDERED: GLYCOPYRROLATE 0.2 MG/ML VIAL ONE (10:30)
[2022-09-22] MEDS ORDERED: NEOSTIGMINE METHYLSULFATE 1 MG/ML 10ML VIAL ONE (10:30)
[2022-09-22] MEDS ORDERED: ONDANSETRON INJ 2 MG/ML 2 ML VIAL ONE (10:30)
[2022-09-22] MEDS ORDERED: DEXAMETHASONE SOD INJ 4 MG/ML VIAL ONE ×2 (10:30)
[2022-09-22] MEDS ORDERED: HYDROmorphone INJ 2 MG/ML SYR/VIAL ONE (10:35)
--- NOTE | 2022-09-22 11:33 | Operative Report ---
Post Operative Report Pre & Post Diagnosis Operation Date: 09/22/22 06:50 Pre-Op Diagnosis: Acute Cholecystitis Post-Op Diagnosis: Acute Cholecystitis I identified the patient and participated in the time-out.: Yes Procedure Operation Date: 09/22/22 06:50 Actual Procedures p Laparoscopic Cholecystectomy(Not Applicable) - Carlton Lewis MD Surgeon Carlton Lewis MD Agronomy Manager None Estimated Blood Loss 5 Findings Consistent with Post-Op Diagnosis The gallbladder was distended and full of large and small stones. It was quite intrahepatic. There adhesions of the omentum and the duodenum to the gal lbladder. Specimens Gallbladder Drains None Anesthesia Type General Complications No immediate complications Description of Procedure The patient was taken to the operating room, and placed supine on the operating table. A timeout was performed, perioperative antibiotics were administered, SCD boots were placed. After adequate anesthesia and analgesia was obtained, the abdomen was prepped and draped in the normal sterile fashion. Local anesthetic was injected into and around the proposed incision sites. An incision was made with a 15 blade scalpel in the supraumbilical region and carried down to the level of the fascia. The fascia was grasped with a trach hook, and a varies needle was used to enter the abdominal cavity. The abdomen was insufflated to a pressure of 15 mmHg, and a 11 mm trocar was placed in this location. A 10 mm, 30 degree laparoscope was placed into the abdominal cavity, and the abdomen was surveyed. The gallbladder appeared quite intrahepatic, distended, and taut. Two 5 mm trochars were placed along the right costal margin, and one 5 mm trocar was placed in the subxiphoid region under direct visualization. Omental adhesions to the gallbladder were taken down with electrocautery and blunt dissection. The gallbladder was grasped and retracted cephalad and laterally.further adhesions of the duodenum were taken down, and finally were able to expose the triangle of [place]. Dissection began in the triangle with a combination of blunt dissection with the [place] dissector, and judicious use of the hook cautery. The cystic duct and cystic artery were dissected free circumferentially, and a critical view of safety was obtained. The cystic duct and cystic artery were clipped and transected, and the gallbladder was removed from the gallbladder fossa with the hook cautery. A small amount of bile was spilled during the step, however no stones were spilled. The camera was switched to a 5 mm, the gallbladder was placed in an E ndo Catch bag, and removed via the supraumbilical port site. Due to the size of the gallbladder as well as the large stones within the gallbladder, the supraumbilical port site was enlarged slightly. The camera was switched back to the 10 mm camera, and the abdomen was surveyed again. Hemostasis was checked and attended, and was excellent. The abdomen was copiously irrigated and suctioned free. Again hemostasis was checked and was excellent. All trochars were removed under direct visualization. The abdomen was desufflated. The fascia in the 11 mm port site was closed with a 0 Vicryl amezquita ture. The skin was closed with a running 4-0 Monocryl subcuticular stitch. Dermabond was applied. The patient tolerated the procedure without complication, and was transferred in stable condition to the PACU. All instrument, needle, and sponge counts were correct at the end of the case. I attest to the content of the Intraoperative Record and any orders documented therein. Any exceptions are noted below.
[2022-09-22] MEDS: fentaNYL citrate PF 100 MCG/2 ML VIAL IV PRN ×4 (11:43→12:53)
[2022-09-22] MEDS ORDERED: PROMETHAZINE HCL INJ 25 MG/ML 1 ML VIAL ONE (11:57)
[2022-09-22] MEDS ORDERED: SODIUM CHLORIDE 0.9% 50 ML BAG ONE (11:57)
[2022-09-22] MEDS ORDERED: FAMOTIDINE 10 MG in SYRINGE 4 ML IV ONE (12:45)
--- NOTE | 2022-09-22 13:03 | Anesthesiology Progress Note ---
Date of Service September 22, 2022 Anesthesia Post Procedure Vital Signs Vital Signs: Temp Pulse Pulse Pulse Resp BP BP 09/22/22 12:55 36.8 C 91 H 18 146/91 H 09/22/22 12:45 99 H 20 153/80 H 09/22/22 12:35 95 H 18 157/92 H 09/22/22 12:25 86 20 157/91 H 09/22/22 12:15 85 18 153/74 H 09/22/22 12:05 85 20 151/78 H 09/22/22 11:55 90 18 136/83 09/22/22 11:45 84 22 148/79 H 09/22/22 11:38 36.1 C L 85 16 134/87 09/22/22 07:09 36.7 C 79 16 09/22/22 02:00 36.7 C 74 16 09/21/22 22:54 37.1 C 71 16 09/21/22 18:21 36.9 C 82 15 09/21/22 17:59 09/21/22 16:01 89 09/21/22 15:46 90 19 09/21/22 15:03 88 19 09/21/22 15:03 09/21/22 15:03 88 09/21/22 14:13 36.6 C 104 H 18 121/80 BP Pulse Ox O2 Del Method O2 Flow Rate 09/22/22 12:55 98 Nasal Cannula 3 09/22/22 12:45 98 Nasal Cannula 3 09/22/22 12:35 97 Nasal Cannula 3 09/22/22 12:25 98 Nasal Cannula 3 09/22/22 12:15 98 Nasal Cannula 3 09/22/22 12:05 96 Nasal Cannula 3 09/22/22 11:55 95 Nasal Cannula 3 09/22/22 11:45 95 Nasal Cannula 3 09/22/22 11:38 96 Oxymask 6 09/22/22 07:09 122/77 98 Room Air 09/22/22 02:00 128/74 98 Room Air 09/21/22 22:54 126/76 96 Room Air 09/21/22 18:21 125/82 96 Room Air 09/21/22 17:59 Room Air 09/21/22 16:01 09/21/22 15:46 127/95 99 Room Air 09/21/22 15:03 126/62 99 Room Air 09/21/22 15:03 Room Air 09/21/22 15:03 98 Room Air 09/21/22 14:13 100 Room Air Pain Intensity Abdomen: Pain Intensity: 4 Transfer of Care Handoff Completed per policy Notes Mental Status: alert / awake / arousable Patient Amnestic to Procedure: Yes Nausea / Vomiting: adequately controlled Pain: adequately controlled Airway Patency, RR, SpO2: stable & adequate BP & HR: stable & adequate Hydration State: stable & adequate Anesthetic Complications: no major complications apparent
[2022-09-22] MEDS ORDERED: oxyCODONE/ACETAMINOPHEN 5mg/325mg TAB PO PRN (13:23)
[2022-09-22] MEDS: LACTATED RINGER'S 1,000 ML IV SCH ×2 (13:29→15:05)
[2022-09-22] MEDS ORDERED: oxyCODONE/ACETAMINOPHEN 10-325 TAB PO STA (18:15)
[2022-09-22] MEDS: ENOXAPARIN INJ 40 MG/0.4 ML SYR SQ SCH (18:24)
[2022-09-22] MEDS ORDERED: PERCOCET 5/325MG HOMEPACK PO ONE (19:02)
--- NOTE | 2022-09-30 08:39 | Discharge Summary ---
Date of Service September 30, 2022 Admission HPI Per Admitting Provider 31-year-old woman presents to the emergency department with severe stabbing right upper quadrant epigastric pain beginning at 1:30 PM today. This started after she ate scrambled eggs at 1:00. She states that she has had epigastric pain, back pain, and heartburn over the past week and increasing episodes. She denies fevers but did have chills when the episode began today. She denies trouble moving her bowels. She denies abdominal surgery in the past. She denies any other complaints. Principal Diagnosis Acute cholecystitis Discharge Data Allergies Allergy/AdvReac Type Severity Reaction Status Date / Time No Known Allergies Allergy Verified 09/21/22 16:31 Consultations 09/21/22 15:55 ED Decision to Admit Stat Procedures Performed Operation Date: 09/22/22 06:50 Actual Procedures p Laparoscopic Cholecystectomy(Not Applicable) - Carlton Lewis MD Ordered Studies 09/21/22 14:29 US gallbladder Stat Hospital Course (1) Acute cholecystitis: Plan 31-year-old woman admitted to the hospital with acute cholecystitis. She was taken to the operating room the next morning for laparoscopic cholecystectomy, the details of which are dictated in a separate operative note. Subsequently her diet was advanced as tolerated. Pain control was effected with oral and IV pain medications. DVT prophylaxis with SCD boots and Lovenox as well as early ambulation. She encouraged with incentive spirometry. By the date of discharge, she was tolerating regular diet, not requiring any IV pain medications, was discharged home in stable condition. She will follow-up in clinic in 2 weeks. Total Time Total Time Spent Total Time Spent (In Minutes): 30 Discharge Plan Discharge Items Patient Disposition: Home - Self-Care Reason For Visit: ACUTE CHOLECYSTITIS Discharge Diagnosis: Acute cholecystitis Activity: Per Instructions section Lifting: No more than 25 pounds Sexual Activity: Wait until after follow-up appointment Exercise/Sports: Wait until after follow-up appointment Non-emergency contact: Surgeon Call non-emergency contact if: you have any medication questions, your symptoms worsen, your pain is not controlled, your pain is worsening, your pain is unusual for you, your pain is concerning for you, your temperature is above 1 01.5, your wound has increased redness, your wound has increased drainage and your wound pain has increased Follow-up/Referrals: PCP,NO [Primary Care Provider] - Diet: Regular Addtl Attending Provider Instructions: Post-Surgical ~Discharge Instructions Activity Recommendations: - lifting limitation: (20 pounds for 2 weeks), - exercise/sex/sports limit: (nonstrenuous for 2 weeks), - driving or machine use limit: (none for 1 week), - Shower/bathe limit: (may shower beginning tomorrow) Diet: - Resume previous diet SPECIAL CARE INSTRUCTIONS: - May shower in 24 hours. Let water run over area and pat dry. - Leave Dermabond in place - Call the surgeon's office with any questions or concerns - - (ex. temperature higher than 101 degrees F, excessive bleeding or pain). MEDICATIONS: - Resume previous medications unless instructed otherwise by your surgeon. - Ibuprofen 600 mg every 6 hours with food - Percocet 1 every 4 hours, as needed for pain FOLLOW UP VISIT: - If not already scheduled, please call the office to schedule a two week follow-up appointment. Office number Pending Studies at Discharge: No Stand-Alone Forms: My [facility] Daily Secret, Smoking Cessation Medications and DC Order Prescriptions: New oxycodone-acetaminophen [Percocet] 5-325 mg tablet 1 tab PO Q6H PRN (Reason: pain) Qty: 10 0RF Continued sertraline 100 mg tablet 150 mg PO QAM liothyronine 5 mcg tablet 5 mcg PO QAM levothyroxine [Synthroid] 100 mcg tablet 100 mcg PO DAILYBB etonogestrel-ethinyl estradiol [EluRyng] 0.12-0.015 mg/24 hr ring 1 vag ring VAGINAL DIRECTED Discharge Orders: Discharge Order (Routine); Ordered 09/22/22 Ordered By: Carlton Lewis Admission Data Admit Date/Time: 09/21/22 17:35 Attending Provider: Carlton Lewis Admit Provider: Carlton Lewis Primary Care Provider: PCP,NO Other Providers: Carlton Lewis Other Interventions: Discharge Summary Assessment (RN) Last Done: 09/22/22 19:44
== END 2022-09-22 20:05 | disposition home or self-care (01) ==
LOC: 3N 14:11 → ED 14:11 → 3N 17:59